=== PATIENT | female | born 1985 | race Hispanic/Latino ===

== ENCOUNTER 2017-02-25 00:17 | Emergency (ER) | payer MEDICAID ==
[2017-02-25 00:48] VITALS: BP 116/85; PULSE 87; RESP 18; TEMP 98.6; O2SAT 100; BMI 34.7
--- NOTE | 2017-02-25 00:58 | ED PDOC ---
Arrival/HPI <David Murphy - Last Filed: 02/25/17 01:15> - General Historian: Patient - History of Present Illness Time/Duration: 1 week Symptom Onset: Gradual Symptom Course: Worsening Activities at Onset: Rest, Light Context: Home <Carol Acosta - Last Filed: 02/25/17 01:37> - General Chief Complaint: ENT Problem Time Seen by Provider: 02/25/17 00:50 - History of Present Illness Narrative History of Present Illness (Text): 02/25/17 00:51 31 year old female smoker, who presents to the emergency department complaining of sore throat and nasal congestion for the past 1 week. Patient describes sore throat as itchy/scratchy. Patient reports associated dry cough, which began yesterday. She denies any recent sick contact, seasonal allergies, fever, chills , nausea, vomiting, diarrhea, or any other complaints at this time. Patient states she did not take any medication at home. PMD: Dr. Jayshree Valentine (Carol Acosta) Past Medical History - Provider Review Nursing Documentation Reviewed: Yes - Infectious Disease Hx of Infectious Diseases: None - Tetanus Immunization Tetanus Immunization: Unknown - Past Medical History Past Medical History: No Previous - Cardiac Hx Cardiac Disorders: No Hx Hypertension: No - Pulmonary Hx Tuberculosis: No - Neurological Hx Seizures: No - HEENT Hx HEENT Disorder: No - Renal Hx Renal Disorder: No - Endocrine/Metabolic Hx Endocrine Disorders: No - Hematological/Oncological Hx Cancer: No - Integumentary Hx Dermatological Disorder: No - Musculoskeletal/Rheumatological Hx Musculoskeletal Disorders: No - Gastrointestinal Hx Gastrointestinal Disorders: No - Genitourinary/Gynecological Hx Genitourinary Disorders: No - Psychiatric Hx Psychophysiologic Disorder: No Hx Depression: No Hx Substance Use: No - Past Surgical History Past Surgical History: No Previous - Surgical History Hx Appendectomy: Yes - Anesthesia Hx Anesthesia: Yes Hx Anesthesia Reactions: No Hx Malignant Hyperthermia: No - Suicidal Assessment Feels Threatened In Home Enviroment: No <Carol Acosta - Last Filed: 02/25/17 01:37> Family/Social History - Physician Review Nursing Documentation Reviewed: Yes Family/Social History: Unknown Family HX Smoking Status: Light Smoker < 10 Cigarettes Daily Hx Alcohol Use: No Hx Substance Use: No Hx Substance Use Treatment: No <Carol Acosta - Last Filed: 02/25/17 01:37> Allergies/Home Meds <David Murphy - Last Filed: 02/25/17 01:15> <Carol Acosta - Last Filed: 02/25/17 01:37> Allergies/Adverse Reactions: Allergies No Known Allergies Allergy (Verified 02/25/17 00:53) Review of Systems - Physician Review All systems were reviewed & negative as marked: Yes - Review of Systems Constitutional: absent: Fevers ENT: Sore Throat Respiratory: Cough Cardiovascular: Normal. absent: Chest Pain Gastrointestinal: Normal. absent: Diarrhea, Nausea, Vomiting Genitourinary Female: Normal Musculoskeletal: Normal Skin: Normal Neurological: Normal <Carol Acosta - Last Filed: 02/25/17 01:37> Physical Exam Vital Signs Reviewed: Yes Temperature: Afebrile Blood Pressure: Normal Pulse: Regular Respiratory Rate: Normal Appearance: Positive for: Well-Appearing, Non-Toxic, Comfortable Pain Distress: None Mental Status: Positive for: Alert and Oriented X 3 - Systems Exam Head: Present: Atraumatic, Normocephalic Extroacular Muscles: Present: EOMI Conjunctiva: Present: Normal Ears: Present: Normal, NORMAL TM, Normal Canal. No: Erythema, TM Bulging, Fluid , TM Perf Mouth: Present: Moist Mucous Membranes Pharnyx: Present: ERYTHEMA (pharyngeal erythema ). No: EXUDATE, TONSILS ENLARGED, Peritonsilar Swelling, Uvular Deviation, Muffled/Hoarse Voice, Strider , Soft Palate/Uvular Edema Nose (External): Present: Atraumatic. No: Abrasion, Contusion, Laceration, Lesions Nose (Internal): Present: Normal Inspection, Clear Mucous. No: Engorged, Septal Hematoma Neck: Present: Normal Range of Motion Respiratory/Chest: Present: Clear to Auscultation, Good Air Exchange. No: Respiratory Distress, Accessory Muscle Use Cardiovascular: Present: Regular Rate and Rhythm, Normal S1, S2. No: Murmurs Abdomen: Present: Normal Bowel Sounds. No: Tenderness, Distention, Peritoneal Signs Upper Extremity: Present: Normal ROM Lower Extremity: Present: Normal ROM Neurological: Present: GCS=15, Speech Normal, Gait Normal Skin: Present: Warm, Dry, Normal Color. No: Rashes Psychiatric: Present: Alert, Oriented x 3 <Carol Acosta - Last Filed: 02/25/17 01:37> Vital Signs Temp Pulse Resp BP Pulse Ox 02/25/17 00:45 98.6 F 87 18 116/85 100 Medical Decision Making <David Murphy - Last Filed: 02/25/17 01:15> <Carol Acosta - Last Filed: 02/25/17 01:37> ED Course and Treatment: 02/25/17 00:51 Impression: 31 year old female with sore throat and dry cough. Differential Diagnosis included but are not limited to: pharyngitis Plan: -- Amoxil -- Reassess and disposition Progress Notes: Pt is well-appearing, in no acute distress. I have discussed the results and plan with the patient, who expresses understanding. Patient in agreement with plan to discharged home with Amoxicillin. Patient is stable for discharge. Patient was instructed to follow up with physician/clinic in 1-2 days or return if symptoms worsen or new concerning symptoms arise. impression: pharyngitis Motrin every 6 hours as needed for pain/fever reduction Increase fluids Amoxicillin; 3 times daily x10 days flonase; 2 sprays each nostril once daily claritin; once daily. Follow up primary care physician within the next 2 days Saltwater gargles, throat lozenges Return if symptoms worsen persist or if the symptoms develop (Carol Acosta) - Medication Orders Current Medication Orders: Discontinued Medications Amoxicillin (Amoxil 500 Mg Cap) 500 mg PO STAT STA PRN Reason: Protocol Stop: 02/25/17 01:00 Last Admin: 02/25/17 01:15 Dose: 500 mg - PA / [employer] WORK[employer] / Resident Statement MD/DO has reviewed & agrees with the documentation as recorded. <David Murphy - Last Filed: 02/25/17 01:15> - Scribe Statement The provider has reviewed the documentation as recorded by the Scribe <Carol Acosta - Last Filed: 02/25/17 01:37> - Scribe Statement Evette Huitron training under Toshia Dejesus. Provider Scribe Attestation: All medical record entries made by the Scribe were at my direction and personally dictated by me. I have reviewed the chart and agree that the record accurately reflects my personal performance of the history, physical exam, medical decision making, and the department course for this patient. I have also personally directed, reviewed, and agree with the discharge instructions and disposition. (Carol Acosta) Disposition/Present on Arrival <KatherineDavid - Last Filed: 02/25/17 01:15> - Present on Arrival Any Indicators Present on Arrival: No History of DVT/PE: No History of Uncontrolled Diabetes: No Urinary Catheter: No History of Decub. Ulcer: No History Surgical Site Infection Following: None - Disposition Have Diagnosis and Disposition been Completed?: Yes Disposition Time: 00:58 Patient Plan: Discharge <Carol Acosta - Last Filed: 02/25/17 01:37> - Disposition Diagnosis: Pharyngitis Disposition: HOME/ ROUTINE Condition: GOOD Discharge Instructions (ExitCare): Pharyngitis (ED) Additional Instructions: Motrin every 6 hours as needed for pain/fever reduction Increase fluids Amoxicillin; 3 times daily x10 days flonase; 2 sprays each nostril once daily claritin; once daily. Follow up primary care physician within the next 2 days Saltwater gargles, throat lozenges Return if symptoms worsen persist or if the symptoms develop Prescriptions: Amoxicillin 500 mg PO TID #30 tab Fluticasone Nasal [Flonase] 2 spr NS DAILY #1 spr Ibuprofen [Motrin] 600 mg PO Q6H PRN #20 tab PRN Reason: pain/fever reduction Loratadine [Claritin] 10 mg PO DAILY #30 tab Referrals: Zeeshan Valentine JD, MD [Primary Care Provider] - Follow up with primary
== END 2017-02-25 01:18 | disposition home or self-care (01) ==
LOC: ED 00:17
DX: J02.9 Acute pharyngitis, unspecified (principal); Z72.0 Tobacco use

== ENCOUNTER 2018-07-11 20:35 | Emergency (ER) | payer MEDICAID ==
[2018-07-11 20:45] VITALS: BMI 37.5
[2018-07-11 20:58] VITALS: RESP 18; TEMP 97.8; O2SAT 100
--- NOTE | 2018-07-11 21:15 | ED PDOC ---
Arrival/HPI - General Chief Complaint: Abnormal Skin Integrity Historian: Patient - History of Present Illness Narrative History of Present Illness (Text): 07/11/18 21:12 33yo female with pmhx of depression, drug abuse who present with complaint of infected dog bite to her right thigh. Patient states she was bitten by a dog on 25 of June and was seen at [facility] sta[place]. States the wound became infected and she return back to [facility] where it was debrided and she was admitted for IV antibiotic. She notes that she was discharged 3days ago with Augmentin, which she claim that she is taking and has been taking care of the wound since then. States she came to ED today because she noticed purulent discharge from the wound and states that the edge of the wound is becoming hard as it was was before the debridement. she denies fever, chills, nausea, vomiting, any other complaint. Also states that she is currently 11weeks . Past Medical History - Provider Review Nursing Documentation Reviewed: Yes - Infectious Disease Hx of Infectious Diseases: None - Tetanus Immunization Tetanus Immunization: Unknown - Past Medical History Past Medical History: No Previous - Cardiac Hx Hypertension: No - Pulmonary Hx Tuberculosis: No - Neurological Hx Seizures: No - HEENT Hx HEENT Disorder: No - Renal Hx Renal Disorder: No - Endocrine/Metabolic Hx Hypothyroidism: Yes - Hematological/Oncological Hx Cancer: No - Integumentary Hx Dermatological Disorder: No - Musculoskeletal/Rheumatological Hx Musculoskeletal Disorders: No Hx Falls: No - Gastrointestinal Hx Gastrointestinal Disorders: No - Genitourinary/Gynecological Hx Sexually Transmitted Diseases: No - Psychiatric Hx Anxiety: Yes Hx Bipolar Disorder: Yes (according to [facility] report) Hx Depression: Yes Hx Substance Use: Yes - Past Surgical History Past Surgical History: No Previous - Surgical History Hx Appendectomy: Yes - Anesthesia Hx Anesthesia: Yes Hx Anesthesia Reactions: No Hx Malignant Hyperthermia: No - Suicidal Assessment Feels Threatened In Home Enviroment: No Family/Social History - Physician Review Nursing Documentation Reviewed: Yes Family/Social History: Unknown Family HX Smoking Status: Former Smoker Hx Alcohol Use: No Hx Substance Use: Yes Substance used: heroin, cocaine Hx Substance Use Treatment: No Allergies/Home Meds Allergies/Adverse Reactions: Allergies No Known Allergies Allergy (Verified 05/03/17 20:14) Review of Systems - Physician Review All systems were reviewed & negative as marked: Yes - Review of Systems Constitutional: Normal Eyes: Normal ENT: Normal Respiratory: Normal Cardiovascular: Normal Gastrointestinal: Normal Genitourinary Female: Normal Musculoskeletal: Normal Skin: Normal Neurological: Normal Endocrine: Normal Hemo/Lymphatic: Normal Psychiatric: Normal Physical Exam Vital Signs Reviewed: Yes Vital Signs Temp Pulse Resp BP Pulse Ox 07/11/18 20:54 97.8 F 78 18 139/91 H 100 Temperature: Afebrile Blood Pressure: Normal Pulse: Regular Respiratory Rate: Normal Appearance: Positive for: Well-Appearing, Non-Toxic, Comfortable Pain Distress: None Mental Status: Positive for: Alert and Oriented X 3 - Systems Exam Head: Present: Atraumatic, Normocephalic Pupils: Present: PERRL Extroacular Muscles: Present: EOMI Conjunctiva: Present: Normal Mouth: Present: Moist Mucous Membranes Neck: Present: Normal Range of Motion Respiratory/Chest: Present: Clear to Auscultation, Good Air Exchange. No: Respiratory Distress, Accessory Muscle Use Cardiovascular: Present: Regular Rate and Rhythm, Normal S1, S2. No: Murmurs Abdomen: No: Tenderness, Distention, Peritoneal Signs Back: Present: Normal Inspection Upper Extremity: Present: Normal Inspection. No: Cyanosis, Edema Lower Extremity: Present: Normal Inspection. No: Edema Neurological: Present: GCS=15, CN II-XII Intact, Speech Normal Skin: Present: Warm, Dry, Normal Color, Other (Approximately 2.0cm open wound with clean margin and granulation tissues noted with two other smaller wounds. No purulent discharge. No erythema. No warmth. No crepitus. No sign of infection). No: Rashes Psychiatric: Present: Alert, Oriented x 3, Normal Insight, Normal Concentration Medical Decision Making ED Course and Treatment: 07/11/18 22:06 PT in ED for stated history. She was afebrile and in no distress. Case was DW administrative resident. She saw patient in ED, dressed the wound and recommends that pt be discharged home to continue with her antibiotics, hence they is no sign of infection. Disposition/Present on Arrival - Present on Arrival Any Indicators Present on Arrival: No History of DVT/PE: No History of Uncontrolled Diabetes: No Urinary Catheter: No History of Decub. Ulcer: No History Surgical Site Infection Following: None - Disposition Have Diagnosis and Disposition been Completed?: Yes Diagnosis: Encounter for wound care Disposition: HOME/ ROUTINE Disposition Time: 22:10 Patient Plan: Discharge Condition: STABLE Discharge Instructions (ExitCare): Wound Care (DC) Additional Instructions: Keep wound clean and dry Follow up with your Doctor/surgeon Return to ED for any new or worsening symptoms Referrals: [facility] [place] [Outside] - Follow up with primary [facility] [place] [Outside] - Follow up with primary [facility] [Outside] - Follow up with primary Forms: [employer] (Vietnamese)
[2018-07-11 22:07] VITALS: BP 135/81; PULSE 75
== END 2018-07-11 22:22 | disposition home or self-care (01) ==
LOC: ED 20:35
DX: S71.151D Open bite, right thigh, subsequent encounter (principal); W54.0XXD Bitten by dog, subsequent encounter